=== PATIENT | female | born 1965 | race Caucasian/White ===

== ENCOUNTER 2019-01-18 18:34 | Emergency (ER) | payer OTHER ==
[2019-01-18 19:23] VITALS: BP 145/92
--- NOTE | 2019-01-18 19:30 | UC ---
General HPI - HPI Summary HPI Summary: 53 yo female c/o ongoing L arm pain s/p fall in garage onto cement floor approx 1 mo ago. No loc. Landed on L side. No p/d. She has not saught medical care until now. Last night was lifting heavy objects, and felt pain, prompting visit tonight. No cp / sob / palpitations. No GI sx. - History of Current Complaint Chief Complaint: UCUpperExtremity Stated Complaint: ARM INJURY FROM A FALL Time Seen by Provider: 01/18/19 19:29 Hx Obtained From: Patient Pain Intensity: 7 - Allergy/Home Medications Allergies/Adverse Reactions: Allergies Allergy/AdvReac Type Severity Reaction Status Date / Time No Known Allergies Allergy Verified 01/18/19 19:23 Home Medications: Home Medications Unobtainable 01/18/19 [History Confirmed 01/18/19] PMH/Surg Hx/FS Hx/Imm Hx Previously Healthy: Yes - Surgical History Surgical History: None - Social History Alcohol Use: Occasionally Substance Use Type: None Smoking Status (MU): Current Some Day Smoker Review of Systems All Other Systems Reviewed And Are Negative: Yes Constitutional: Positive: Other - see hpi Skin: Positive: Other - see hpi Eyes: Positive: Other - see hpi ENT: Positive: Other - see hpi Respiratory: Positive: Other - see hpi Cardiovascular: Positive: Other - see hpi Gastrointestinal: Positive: Other - see hpisee hpi Motor: Positive: Other - see hpi Neurovascular: Positive: Other - see hpi Musculoskeletal: Positive: Other: - see hpi Neurological: Positive: Other - see hpi Psychological: Positive: Negative Is Patient Immunocompromised?: No Physical Exam Triage Information Reviewed: Yes Appearance: Well-Appearing, Well-Nourished Vital Signs: Initial Vital Signs Temp 98.2 F 01/18/19 19:18 Pulse 94 01/18/19 19:18 Resp 18 01/18/19 19:18 BP 145/92 01/18/19 19:18 Pulse Ox 99 01/18/19 19:18 Vital Signs Reviewed: Yes Eye Exam: Normal ENT Exam: Normal Neck: Positive: Supple, Nontender Respiratory Exam: Normal Cardiovascular Exam: Normal Abdominal Exam: Normal Musculoskeletal Exam: Other - Left mid humerus mild tender no crepitus Unable to straigten elbow, painful. Painful to L radial head and post elbow R/U pp good. FROM wrist. Tender mid forearm. AX n and distal hand / fingers + LT sens x 5 Ok thumb index / 5th good Neurological Exam: Other - see above Psychological Exam: Normal - conversing easily and appropriately Skin Exam: Normal - no visible or reported rash Course/Dx - Course Course Of Treatment: Reviewed xrays. No report available. D/w pt. Sling initiated. F/u orthopedics this week. F/u pcp (carlos) next week recommended. Reviewed coa / tx plan. Questions answered as posed to the best of my ability. - Diagnoses Provider Diagnosis: Radial head fracture Discharge - Sign-Out/Discharge Documenting (check all that apply): Patient Departure All imaging exams completed and their final reports reviewed: No - Discharge Plan Condition: Stable Disposition: HOME Patient Education Materials: Elbow Fracture (ED) Referrals: Lamine Bain MD [Medical Doctor] - Uriel KYLE,Rito Flores [Primary Care Provider] - Additional Instructions: Xrays will be finalized tomorrow. Suspicious for Radial Head Fracture. Please follow up with your primary care physician, routine. Sling recommended. Follow up with ORTHOPEDIC DOCTOR - within one week. Please seek medical attention for worse or new problems. - Billing Disposition and Condition Condition: STABLE Disposition: Home
--- NOTE | 2019-01-20 00:05 | UC ---
- Progress Note Progress Note: Radiology reports are reviewed. Confirm fracture of left radial head. No change in management. LEFT ELBOW XRAYS Healing subacute fracture of the left radial head without intra-articular extension. LEFT HUMERUS XRAYS No fracture or traumatic malalignment of the left humerus. LEFT SHOUDLER XRAYS No fracture or traumatic malalignment of the left shoulder. LEFT WRIST XRAYS No fracture or traumatic malalignment of the left wrist Course/Dx - Diagnoses Provider Diagnoses: Radial head fracture Discharge - Sign-Out/Discharge Documenting (check all that apply): Post-Discharge Follow Up All imaging exams completed and their final reports reviewed: Yes - Discharge Plan Condition: Stable Disposition: HOME Patient Education Materials: Elbow Fracture (ED) Referrals: Lamine Bain MD [Medical Doctor] - Uriel KYLE,Rito Flores [Primary Care Provider] - Additional Instructions: Xrays will be finalized tomorrow. Suspicious for Radial Head Fracture. Please follow up with your primary care physician, routine. Sling recommended. Follow up with ORTHOPEDIC DOCTOR - within one week. Please seek medical attention for worse or new problems. - Billing Disposition and Condition Condition: STABLE Disposition: Home
== END 2019-01-18 21:10 | disposition home or self-care (01) ==
LOC: UCEAST 18:34
DX: S52.122A Displaced fracture of head of left radius, initial encounter for closed fracture (principal); F17.200 Nicotine dependence, unspecified, uncomplicated; W17.89XA Other fall from one level to another, initial encounter; Y92.59 Other trade areas as the place of occurrence of the external cause
CPT/HCPCS: 99202; G0463